=== PATIENT | female | born 1975 | race Caucasian/White ===

== ENCOUNTER 2023-03-12 16:15 | Emergency (ER) | payer OTHER, SELFPAY ==
[2023-03-12 16:16] VITALS: BP 117/82; PULSE 91; RESP 16; TEMP 36.6; O2SAT 100; BMI 39.5
--- NOTE | 2023-03-12 16:53 | EDS_ITS ---
HPI <LEÓN Vazquez - Last Filed: 03/12/23 17:51> History of Present Illness Chief Complaint: Laceration Narrative Narrative: Patient presenting with a laceration to the volar aspect of her left hand near the first metacarpal. She was opening up a new box of knives when one of them cut her. Her tetanus is in need of being updated. She denies any other injury. She is not on any blood thinners. PFSH <LEÓN Vazquez - Last Filed: 03/12/23 17:51> PFSH Medical History no medical history Home Medications NK 03/12/23 [History Last Taken Unknown] Social History Smoking Status: Never smoker ROS <LEÓN Vazquez - Last Filed: 03/12/23 17:51> ROS ED Constitutional Constitutional ED: Denies chills or fever(s) Cardiovascular Cardiovascular: Denies chest pain Respiratory/Chest Respiratory/Chest: Denies cough or dyspnea Gastrointestinal Gastrointestinal: Denies abdominal pain, nausea or vomiting Musculoskeletal Musculoskeletal: Denies arthralgias or myalgias Integumentary Reports laceration Neurologic Neurologic: Denies weakness EXAM <LEÓN Vazquez - Last Filed: 03/12/23 17:51> Physical Exam Const Vital Signs: 03/12/23 16:16 Temperature 97.9 F Temperature Source Temporal Pulse Rate 91 Respiratory Rate 16 Blood Pressure 117/82 H Blood Pressure Mean 93 Pulse Ox 100 Oxygen Delivery Method Room Air Positive well nourished, well developed and no apparent distress General Appearance ED: well developed HEENT Reports normocephalic and head/scalp atraumatic Mouth ED: Yes moist mucous membranes normal Eyes PERRL and EOMs intact bilaterally Neck full ROM and supple Chest Wall inspection of chest normal Resp normal respiratory effort and clear to auscultation bilaterally Cardio regular rate and regular rhythm GI soft to palpation, non-tender, non-distended and no masses Back/Spine normal ROM and normal to inspection Extremity normal to inspection and full ROM Extremity Narrative: 3.5 cm laceration at the palmar aspect of the left hand, base of the index finger. Full flexion and extension at the MCP, PIP, and DIP joints of the left hand. Radial pulse 2+ bilaterally, good capillary refill, sensation intact. Neuro oriented x3, CN's II-XII intact bilaterally, moves all extremities, no focal motor deficits and no sensory deficits noted Sensorium / Orientation: awake and alert Psych mental status grossly normal and thought process normal Skin no rashes or lesions noted and no wounds <Dr. Mandeep Dacosta MD - Last Filed: 03/12/23 17:17> Physical Exam Const Vital Signs: 03/12/23 16:16 Temperature 97.9 F Temperature Source Temporal Pulse Rate 91 Respiratory Rate 16 Blood Pressure 117/82 H Blood Pressure Mean 93 Pulse Ox 100 Oxygen Delivery Method Room Air PROC <LEÓN Vazquez - Last Filed: 03/12/23 17:51> Procedures Lacerations Laceration: Length: 3.5 cm Depth: Sub Q Shape: Linear Prep: Chlorhexadine Laceration repair: Irrigated, Lidocaine and Skin sutures Number of Sutures/Claritza: 7 Suture Information: Ethilon (5-0) and Simple MDM <LEÓN Vazquez - Last Filed: 03/12/23 17:51> [facility] MDM Narrative Medical decision making narrative: Patient presenting today with a laceration that is about 3.5 cm in length and is full-thickness to the base of the first index finger palmar aspect of her left hand as she got while opening up a new pack of knives this afternoon. Her tetanus will be updated here. She is well-appearing and in no acute distress, vitals are unremarkable. Patient is right-handed. Laceration was irrigated with copious amounts of normal saline, it was cleaned with chlorhexidine, 7 sutures were placed. Wound was bandaged with bacitracin ointment. Patient has been educated on signs of infection to look out for and reasons to return. She is to have sutures removed in 7 days. She will be discharged home in stable condition and is comfortable with plan. <Dr. Mandeep Dacosta MD - Last Filed: 03/12/23 17:17> [facility] Treatment and Re-Evaluation Narrative: I have personally performed a face to face assessment of the patient and have reviewed the NOMI Note. I performed a substantive portion of the visit including all aspects of the following. My capps findings include: History is accidentally cut left hand with a knife when she was cutting something open with her right hand. [id number]. Exam is 3.5 cm laceration at the palmar aspect of the left hand, base of the index finger. All tendon function FDS, FDP intact. She has decreased sub jective sensation in the left thumb although the laceration is not associated with the thumb neurovascular bundles at all, as well as the index finger. Medical Decison Making tetanus update, repair laceration, close a patient follow-up. Other additions or changes: [None] Discharge Plan Triage Chief Complaint: Laceration ED Midlevel Provider: Estelle Cast ED Provider: Mandeep Dacosta Dx/Rx/DC Orders Clinical Impression: Laceration of hand Instructions: ED Laceration, Hand: All Closures Prescriptions: No Action NK Primary Care Provider: PRICILA HOLLY Referrals: NOT,DEFINED [Non-Staff] - Activity Restrictions/Additional Instructions: Have stitches removed in 7 days, please follow-up with your PCP for any redness, puslike discharge, increased swelling, or fever. Keep area clean and covered. Disposition Disposition: Home, Self Care
[2023-03-12] MEDS: Lidocaine 1% (20 ml mdv) 20 ML Vial 10 ML INFILT (17:03)
[2023-03-12] MEDS: Diphth,Pertuss(Acell),Tet Vac 0.5 ML Vial IM (17:03)
== END 2023-03-12 17:54 | disposition home or self-care (01) ==
PROVIDERS: Emergency Provider Emergency Medicine; Visit Provider Emergency Medicine
DX: S61.412A Laceration without foreign body of left hand, initial encounter (principal); Z23 Encounter for immunization; W26.0XXA Contact with knife, initial encounter
CPT/HCPCS: 12002; 90471; 90715; 99282